=== PATIENT | female | born 2000 | race Two or more races ===

== ENCOUNTER 2020-03-16 23:30 | Emergency (ER) | payer OTHER ==
[~2020-03-16] VITALS: Ht 137.2 cm; Wt 64.4 kg
[2020-03-17] MEDS ORDERED: PRENA1 CHEW TA1.4 MG (00:03)
== END 2020-03-17 06:47 | disposition home or self-care (01) ==
LOC: ER 23:30
DX: O23.31 Infections of other parts of urinary tract in pregnancy, first trimester (principal); O26.891 Other specified pregnancy related conditions, first trimester; R10.2 Pelvic and perineal pain; Z3A.09 9 weeks gestation of pregnancy